=== PATIENT | male | born 1960 | race Caucasian/White ===

== ENCOUNTER 2018-10-04 20:03 | Inpatient (IN) | payer OTHER ==
[2018-10-04] MEDS ORDERED: NS 0.9% 1000 ML** 1,000 ML IV ONE (22:46)
[2018-10-04] MEDS ORDERED: Morphine 4 MG/ML VIAL (1 ml) 4 MG/ML VIAL IV ONE (22:52)
[2018-10-04] MEDS ORDERED: Ondansetron INJ* 2 MG/ML VIAL IV ONE (22:52)
[2018-10-04 23:06] LABS: Urine Appearance Clear; Urine Bilirubin Negative (Negative); Urine Blood Negative (Negative); Urine Color Yellow; Urine Glucose Negative (Negative); Urine Ketones Negative (Negative); Urine Nitrite Negative (Negative); Urine Protein Negative (Negative); Urine Specific Gravity 1.023 (1.010-1.030); Urine Urobilinogen Negative (Negative)
[2018-10-04 23:26] LABS: ABS Lymphocytes 0.5 10^3/ul (1.0-4.8); ABS Monocytes 0.3 10^3/ul (0-0.8); ABS Neutrophils 12.2 10^3/ul (1.5-7.7); Hematocrit 45 % (42-52); Lymphocyte % 3.7 %; Mean Corpuscular HGB Conc 34 g/dL (31-36); Mean Corpuscular Hemoglobin 29 pg (27-31); Mean Corpuscular Volume 87 fL (80-94); Mean Platelet Volume 7.9 fL (7.4-10.4); Platelet Count 155 10^3/uL (150-450); Red Blood Count 5.12 10^6 /uL (4.18-5.48); Red Cell Distribution Width 13 % (10-15)
[2018-10-04 23:44] LABS: ALT 30 U/L (7-52); AST 26 U/L (13-39); Albumin 4.6 g/dL (3.2-5.2); Albumin/Globulin Ratio 1.7 (1-3); Alkaline Phosphatase 65 U/L (34-104); Anion Gap 10 mmol/L (2-11); BUN/Creatinine Ratio 18.4 (8-20); Blood Urea Nitrogen 16 mg/dL (6-24); CO2 Carbon Dioxide 24 mmol/L (22-32); Calcium 10.2 mg/dL (8.6-10.3); Chloride 106 mmol/L (101-111); EGFR African American 108.7 (>60); EGFR Non-African American 89.8 (>60); Globulin 2.7 g/dL (2-4); Glucose 161 mg/dL (70-100); Potassium 4.6 mmol/L (3.5-5.0); Sodium 140 mmol/L (135-145); Total Protein 7.3 g/dL (6.4-8.9)
[2018-10-05] MEDS ORDERED: Morphine 4 MG/ML VIAL (1 ml) 4 MG/ML VIAL IV ONE (00:01)
[2018-10-05] MEDS ORDERED: Iohexol 300* (CONTRAST) 10 ML SDV IV ONE (00:03)
[2018-10-05] MEDS ORDERED: ED Piperacillin/Tazobac 3.375 3.375 GM/100 ML PREMIX.SET IVPB ONE (02:00)
[2018-10-05] MEDS ORDERED: HYDROmorphone INJ1* 1 MG/ML SYRINGE IV ONE ×2 (02:02→02:51)
--- NOTE | 2018-10-05 02:03 | ED ---
Abdominal Pain/Male - HPI Summary HPI Summary: Patient complains of sudden onset bilateral lower abdominal pain 5 hours prior to arrival with right side greater than left side, associated nausea. Also states no bowel movement 2.5 days. History of colonoscopy [address] Stevens in [place]. Denies fever, cough, sore throat, CP, SOB, V/D, change in urine. Medical history is none. Abdominal surgical history is none. - History of Current Complaint Chief Complaint: EDAbdPain Stated Complaint: ABD PAIN PER PT Time Seen by Provider: 10/04/18 22:42 Hx Obtained From: Patient Onset/Duration: Sudden Onset, Lasting Hours Timing: Constant Severity Initially: Severe Severity Currently: Severe Pain Intensity: 8 Pain Scale Used: 0-10 Numeric Location: Discrete At: RLQ, Discrete At: LLQ, Suprapubic Radiates: No Character: Sharp Aggravating Factor(s): Nothing Alleviating Factor(s): Nothing Associated Signs And Symptoms: Positive: Negative - Allergies/Home Medications Allergies/Adverse Reactions: Allergies Allergy/AdvReac Type Severity Reaction Status Date / Time No Known Allergies Allergy Verified 11/01/12 07:21 PMH/Surg Hx/FS Hx/Imm Hx Endocrine/Hematology History: Denies: Hx Diabetes, Hx Thyroid Disease Cardiovascular History: Denies: Hx Congestive Heart Failure, Hx Deep Vein Thrombosis, Hx Hypertension , Hx Myocardial Infarction, Hx Pacemaker/ICD, Other Cardiovascular Problems/ Disorders Respiratory History: Denies: Hx Asthma, Hx Chronic Obstructive Pulmonary Disease (COPD), Hx Lung Cancer, Hx Pneumonia, Hx Pulmonary Embolism, Other Respiratory Problems/ Disorders GI History: Denies: Hx Gall Bladder Disease, Hx Gastrointestinal Bleed, Hx Ulcer, Hx Urosepsis, Other GI Disorders History: Denies: Hx Kidney Stones, Hx Renal Disease, Other Problems/Disorders Musculoskeletal History: Denies: Other Musculoskeletal History Sensory History: Denies: Hx Contacts or Glasses, Hx Hearing Aid Opthamlomology History: Denies: Hx Contacts or Glasses Neurological History: Denies: Hx Dementia, Hx Migraine, Hx Seizures, Hx Transient Ischemic Attacks (TIA), Other Neuro Impairments/Disorders Psychiatric History: Denies: Hx Anxiety, Hx Depression, Hx Schizophrenia, Hx Bipolar Disorder - Surgical History Surgery Procedure, Year, and Place: WISDOM TEETH 30 YEARS AGO. L bicept surgery Hx Anesthesia Reactions: No Infectious Disease History: No Infectious Disease History: Denies: Hx Hepatitis, Hx Human Immunodeficiency Virus (HIV), History Other Infectious Disease, Traveled Outside the [place] in Last 30 Days - Family History Known Family History: Positive: None - Social History Alcohol Use: None Substance Use Type: Reports: None Smoking Status (MU): Former Smoker Review of Systems Constitutional: Negative Eyes: Negative ENT: Negative Cardiovascular: Negative Respiratory: Negative Positive: Abdominal Pain, Nausea Genitourinary: Negative Musculoskeletal: Negative Skin: Negative Neurological: Negative Psychological: Normal All Other Systems Reviewed And Are Negative: Yes Physical Exam - Summary Physical Exam Summary: Tenderness to palpation in bilateral lower abdomen. Abdominal exam otherwise unremarkable. Lung sounds clear to auscultation bilaterally. Triage Information Reviewed: Yes Vital Signs On Initial Exam: Initial Vitals Temp Pulse Resp BP Pulse Ox 98.6 F 90 22 143/98 98 10/04/18 20:41 10/04/18 20:41 10/04/18 20:41 10/04/18 20:41 10/04/18 20:41 Vital Signs Reviewed: Yes Appearance: Positive: Well-Appearing Skin: Positive: Warm Head/Face: Positive: Normal Head/Face Inspection Eyes: Positive: Normal ENT: Positive: Normal ENT inspection Neck: Positive: Supple Respiratory/Lung Sounds: Positive: Clear to Auscultation Cardiovascular: Positive: Normal Abdomen Description: Positive: Other: Diagnostics - Vital Signs Vital Signs Temp Pulse Resp BP Pulse Ox 10/05/18 00:52 18 10/05/18 00:08 37 146/105 10/05/18 00:00 24 10/04/18 23:42 28 10/04/18 23:37 31 145/96 10/04/18 23:08 119 38 139/97 94 10/04/18 23:02 18 10/04/18 23:00 130 38 97 10/04/18 22:39 137 97 10/04/18 22:38 132 155/104 98 10/04/18 20:41 98.6 F 90 22 143/98 98 - Laboratory Lab Results: Lab Results 10/04/18 10/04/18 10/04/18 Range/Units 22:45 23:14 23:14 WBC 13.0 H (3.5-10.8) 10^3/uL RBC 5.12 (4.18-5.48) 10^6 /uL Hgb 15.0 (14.0-18.0) g/dL Hct 45 (42-52) % MCV 87 (80-94) fL MCH 29 (27-31) pg MCHC 34 (31-36) g/dL RDW 13 (10-15) % Plt Count 155 (150-450) 10^3/uL MPV 7.9 (7.4-10.4) fL Neut % (Auto) 93.7 % Lymph % (Auto) 3.7 % Gray % (Auto) 2.3 % Eos % (Auto) 0.0 % Baso % (Auto) 0.3 % Absolute Neuts (auto) 12.2 H (1.5-7.7) 10^3/ul Absolute Lymphs (auto) 0.5 L (1.0-4.8) 10^3/ul Absolute Monos (auto) 0.3 (0-0.8) 10^3/ul Absolute Eos (auto) 0.0 (0-0.6) 10^3/ul Absolute Basos (auto) 0.0 (0-0.2) 10^3/ul Absolute Nucleated RBC 0.0 10^3/ul Nucleated RBC % 0.0 Sodium 140 (135-145) mmol/L Potassium 4.6 (3.5-5.0) mmol/L Chloride 106 (101-111) mmol/L Carbon Dioxide 24 (22-32) mmol/L Anion Gap 10 (2-11) mmol/L BUN 16 (6-24) mg/dL Creatinine 0.87 (0.67-1.17) mg/dL Est GFR ( Amer) 108.7 (>60) Est GFR (Non-Af Amer) 89.8 (>60) BUN/Creatinine Ratio 18.4 (8-20) Glucose 161 H (70-100) mg/dL Calcium 10.2 (8.6-10.3) mg/dL Total Bilirubin 0.80 (0.2-1.0) mg/dL AST 26 (13-39) U/L ALT 30 (7-52) U/L Alkaline Phosphatase 65 (34-104) U/L C-Reactive Protein 4.50 (<8.01) mg/L Total Protein 7.3 (6.4-8.9) g/dL Albumin 4.6 (3.2-5.2) g/dL Globulin 2.7 (2-4) g/dL Albumin/Globulin Ratio 1.7 (1-3) Lipase < 10 L (11.0-82.0) U/L Urine Color Yellow Urine Appearance Clear Urine pH 5.0 (5-9) Ur Specific [place] 1.023 (1.010-1.030) Urine Protein Negative (Negative) Urine Ketones Negative (Negative) Urine Blood Negative (Negative) Urine Nitrate Negative (Negative) Urine Bilirubin Negative (Negative) Urine Urobilinogen Negative (Negative) Ur Leukocyte Esterase Negative (Negative) Urine Glucose Negative (Negative) Result Diagrams: 10/06/18 05:46 10/06/18 05:46 Lab Statement: Any lab studies that have been ordered have been reviewed, and results considered in the medical decision making process. Abdominal Pain Male Course/Dx - Course Course Of Treatment: Patient complains of sudden onset bilateral lower abdominal pain 5 hours prior to arrival with right side greater than left side, associated nausea. Also states no bowel movement 2.5 days. History of colonoscopy [address] Stevens in [place]. Denies fever, cough, sore throat, CP, SOB, V/D, change in urine. Medical history is none. Abdominal surgical history is none. Vital signs within normal limits. WBC 13. Labs otherwise unremarkable. Ultrasound testicle negative. CT abdomen and pelvis with contrast positive for brynn pneumoperitoneum with appearance of focal perforation of the distal sigmoid colon. Extensive diverticulosis without evidence of acute diverticulitis. Admitted to surgery Dr. Torrez. Rickey given here in the ED. - Diagnoses Provider Diagnoses: Pneumoperitoneum, Perforated sigmoid colon Discharge - Sign-Out/Discharge Documenting (check all that apply): Patient Departure Patient Received Moderate/Deep Sedation with Procedure: No - Discharge Plan Condition: Fair Disposition: ADMITTED TO [facility] - Billing Disposition and Condition Condition: FAIR Disposition: Admitted to [facility]
[2018-10-05] MEDS ORDERED: Zosyn 3.375 GM IV - ED ONCE IVPB ONE ×2 (02:30)
[2018-10-05] MEDS ORDERED: Sevoflurane* BOTTLE ONE (03:22)
[2018-10-05] MEDS ORDERED: Midazolam* 1 MG/ML 2 ML VIAL (2 MG) ONE (03:22)
[2018-10-05] MEDS ORDERED: ceFOXitin 2 GM IVPREMIX* 2 GM/50 ML BAG ONE (03:22)
[2018-10-05] MEDS ORDERED: fentaNYL* 50 MCG/ML 2 ML VIAL (100 MCG VIAL) ONE ×2 (03:22→06:52)
[2018-10-05] MEDS ORDERED: Lactated Ringers 1000 ML Bag* 1,000 ML IV SCH (04:00)
[2018-10-05] MEDS ORDERED: Propofol* 10 MG/ML 20 ML BTL ONE (04:13)
[2018-10-05] MEDS ORDERED: Lidocaine 2% PF * 5 ML VIAL ONE (04:13)
[2018-10-05] MEDS ORDERED: Succinylcholine* 20 MG/ML 10 ML VIAL ONE (04:13)
[2018-10-05] MEDS ORDERED: Dexamethasone IV* 4 MG/ML 1 ML (4 MG) ONE (04:13)
[2018-10-05] MEDS ORDERED: Ondansetron INJ* 2 MG/ML VIAL ONE (04:13)
[2018-10-05] MEDS ORDERED: Etomidate* 2 MG/ML 10 ML VIAL ONE (04:14)
[2018-10-05] MEDS ORDERED: Cisatracurium* 2 MG/ML MDV 5 ML ONE (04:18)
--- NOTE | 2018-10-05 04:53 | HP ---
CC: Dr. Brumfield; Dr. Pineda * ADMISSION HISTORY AND PHYSICAL: DATE OF ADMISSION: 10/05/18 CHIEF COMPLAINT: Abdominal pain. HISTORY OF PRESENT ILLNESS: This pleasant 57-year-old gentleman presented to the emergency room last evening with abdominal pain. Pain was severe in the lower abdomen and had been going on since earlier in the day, came to the emergency room about 7 o'clock. He has had some nausea. Recent history revealed that he had a colonoscopy with polypectomy in [place] by Dr. Pineda on 10/02/18 with a polyp removal. Prior to that, no bleeding. He was seen for routine screening according to the patient. Since Sunday, denies issues of bleeding or abdominal pain until 10/04/18. Workup in the emergency room included laboratory studies, which showed an elevated white blood cell count of 13,000 received at 23:14. His electrolytes appeared normal. Hematocrit 45. He had a CT scan of the abdomen and pelvis at 22:45, which revealed brynn pneumoperitoneum with appearance of focal perforation in the distal sigmoid colon, which was interpreted and signed at 1:31. I was called at 2 a.m. to evaluate the patient. PAST MEDICAL HISTORY: Denies history of cardiac, liver, kidney, or lung disease. No history of UT. PAST SURGICAL HISTORY: No prior abdominal surgery. He did have left biceps surgery. Denies history of poor reaction with anesthesia. SOCIAL HISTORY: He is here with his . He has 3 children. He is a nonsmoker. No alcohol use. He works as a jeweler. FAMILY HISTORY: No history of colorectal or breast cancer noted. REVIEW OF SYSTEMS: General: Denies weight loss, change of appetite. HEENT: No changes in vision, hearing, swallowing. No sore throat. Cardiac: No chest pain. Pulmonary: Cough. GI: Some constipation. No blood per rectum. : No hematuria. Skin: Denies rash. Neuro: No headache or dizziness. Musculoskeletal: No extremity weakness. Psych: No anxiety or depression. PHYSICAL EXAMINATION GENERAL: Pleasant gentleman with abdominal pain. He is tachycardic. VITAL SIGNS: Blood pressure stable. HEENT: Sclerae are anicteric. Oral mucosa is pink and moist. NECK: Supple. No JVD. LUNGS: Clearly anteriorly. HEART: Tachy. ABDOMEN: Soft in the upper abdomen. Firm, tender in the lower abdomen with guarding, rebound tenderness consistent with peritonitis. EXTREMITIES: No clubbing, cyanosis, or edema. NEURO: Grossly intact. No focal motor or sensory deficits. SKIN: No rash, petechiae, or jaundice. IMPRESSION: Perforated sigmoid colon with recent colonoscopy and polypectomy. PLAN: Plan will be for exploratory laparotomy, likely sigmoid colectomy with end colostomy/Devin's procedure for perforation. We discussed the surgery and the risks including, but not limited to bleeding, infection, injury to intraabdominal contents including the bowel, the ureter, other intraabdominal contents. UT, pneumonia, PE, arrhythmia, even were explained to the patient. He gave consent for procedure and all questions were answered. [id number]/[facility] #: [id number] ROSAURA
[2018-10-05] MEDS ORDERED: Ketorolac INJ* 30 MG/ML 1 ML VIAL ONE (04:59)
[2018-10-05] MEDS: Ketorolac INJ* 30 MG/ML 1 ML VIAL IV SCH ×3 (05:00→18:01)
[2018-10-05] MEDS ORDERED: Bacitracin OINTMENT* 0.5% 0.5 oz TUBE ONE (05:01)
[2018-10-05] MEDS ORDERED: fentaNYL* 50 MCG/ML 2 ML VIAL (100 MCG VIAL) IV PRN (06:49)
[2018-10-05] MEDS ORDERED: Naloxone* 0.4 MG/ML 1 ML VIAL IV PRN (06:49)
--- NOTE | 2018-10-05 08:16 | OP ---
DATE OF OPERATION: 10/05/18 - ROOM #342 DATE OF : 56 ATTENDING SURGEON: Luís Torrez MD PRE-OP DIAGNOSIS: Perforated sigmoid colon. POST-OP DIAGNOSIS: Perforated sigmoid colon. OPERATIVE PROCEDURES: Open sigmoid colectomy, then coloectomy/Devin's procedure. INDICATIONS FOR PROCEDURE: Perforation after recent colonoscopy in [place]. Risks included, but not limited to bleeding and perforation explained to the patient. The patient seemed to understand and agreed to the procedure and all questions were answered. DESCRIPTION OF PROCEDURE: The patient was taken to the operating room and placed supine. Preoperative antibiotics were given. After the successful induction of general endotracheal anesthesia, the abdomen was prepped and draped in a sterile fashion. A midline incision was made both the umbilicus and carried down through the subcutaneous tissue. Bovie cautery was used to open the fascia and the peritoneal cavity was entered. A large amount of purulent fluid was noted. Much of this was aspirated. The abdomen was explored. The sigmoid colon showed an obvious large perforation on the antimesenteric border. The segment of perforation appeared to be localized to this area. Some small bowel was adherent to the area, but appeared viable and normal. Some omentum was adhered down there as well. The sigmoid was gently mobilized medially along the lateral peritoneal reflection. The colon was divided at the rectosigmoid using a 60-mm stapler. Then approximately proximal to the perforation using another load of the 65-mm stapler. The mesentry was taken using the Endo sealing device. Specimen was removed. The abdomen was copiously irrigated with warm saline, at least 6 L and aspirated dry. The bowel was run. A few omental adhesions were divided. No other bowel or intraabdominal abnormalities were noted. Decision was to make an ostomy in the left lower quadrant and choice was chosen. Skin was removed. Subcutaneous fat was divided with Bovie cautery. Anterior fascia was opened in a cruciate fashion. The rectus muscles were gently along the fibers. Posterior fascia was opened. The bowel was brought through for colostomy. The omentum was placed over the small bowel. The fascia was closed with a running #1 PDS suture. The skin was closed with elle, antibiotic ointment was applied. The wound was irrigated prior to closure. The colostomy was matured using 4-0 PDS suture. He tolerated the procedure well. [id number]/[facility] #: [id number] [facility] DOWN[facility] MEDICAL CENTERKerry
[2018-10-05] MEDS: Lactated Ringers 1000 ML Bag* 1,000 ML IV SCH ×2 (08:35→15:49)
[2018-10-05] MEDS: Piperacillin/Tazobactam VIAL*) 3.375 GM in NS 0.9% 100 ML* 100 ML IVPB SCH ×3 (11:21→20:21)
[2018-10-05] MEDS: Heparin VIAL(*) 5000 UNITS/ML VIAL (FIVE THOUSAND) SUBCUT SCH ×3 (12:24→21:43)
[2018-10-05] MEDS ORDERED: Famotidine IV* 10 MG/ML 2 ML (20 mg) ONE (15:42)
[2018-10-05] MEDS: Ondansetron INJ* 2 MG/ML VIAL IV PRN (15:46)
[2018-10-05] MEDS: Famotidine IV* 10 MG/ML 2 ML (20 mg) IV PRN (15:47)
[2018-10-05] MEDS: NS 0.9% 1000 ML** 1,000 ML IV SCH (21:00)
[2018-10-06] MEDS: Ketorolac INJ* 30 MG/ML 1 ML VIAL IV SCH ×5 (00:14→23:45)
[2018-10-06] MEDS: Piperacillin/Tazobactam VIAL*) 3.375 GM in NS 0.9% 100 ML* 100 ML IVPB SCH ×3 (04:07→19:42)
[2018-10-06] MEDS: Heparin VIAL(*) 5000 UNITS/ML VIAL (FIVE THOUSAND) SUBCUT SCH ×3 (06:01→21:39)
[2018-10-06] MEDS: NS 0.9% 1000 ML** 1,000 ML IV SCH ×3 (06:05→21:44)
[2018-10-06 06:13] LABS: ABS Monocytes 0.4 10^3/ul (0-0.8); ABS Neutrophils 15.9 10^3/ul (1.5-7.7); Hematocrit 34 % (42-52); Hemoglobin 11.8 g/dL (14.0-18.0); Lymphocyte % 5.7 %; Mean Corpuscular HGB Conc 35 g/dL (31-36); Mean Corpuscular Hemoglobin 30 pg (27-31); Mean Corpuscular Volume 87 fL (80-94); Mean Platelet Volume 8.2 fL (7.4-10.4); Nucleated Red Blood Cells % 0.1; Platelet Count 128 10^3/uL (150-450); Red Blood Count 3.88 10^6 /uL (4.18-5.48); Red Cell Distribution Width 13 % (10-15); White Blood Count 17.3 10^3/uL (3.5-10.8)
[2018-10-06 06:27] LABS: BUN/Creatinine Ratio 28.2 (8-20); Calcium 8.4 mg/dL (8.6-10.3); EGFR African American 123.3 (>60); EGFR Non-African American 101.9 (>60); Potassium 3.6 mmol/L (3.5-5.0)
[2018-10-06] MEDS ORDERED: Lactated Ringers 1000 ML Bag* 1,000 ML IV SCH (08:00)
--- NOTE | 2018-10-06 09:12 | PN ---
Progress Note - Progress Note Date of Service: 10/06/18 SOAP: Subjective: Pain controlled with Toradol only. Up walking. +flatus. No N/V. Objective: Vital Signs Temp 98.3 F 10/06/18 07:55 Pulse 99 10/06/18 07:55 Resp 17 10/06/18 07:55 BP 112/67 10/06/18 07:55 Pulse Ox 93 10/06/18 07:55 Gen: NAD Abd: dressings c/d/i; ostomy pink with edema +gas; mildly distended and tender. Intake & Output 10/05/18 10/06/18 10/06/18 18:59 06:59 18:59 Intake Total 1640 667 397 Output Total 850 800 Balance 790 -133 397 Weight 180 lb Intake: IV Fluids 1535 554 290 LR 1430 554 NS (0.9%) 105 290 IVPB 105 113 107 ABX - ZOSYN 105 113 107 Oral 0 0 Output: NG Tube Drainage Amount 200 125 Urine 375 625 Colostomy 50 Emesis 275 Laboratory Results - last 24 hr 10/06/18 10/06/18 05:46 05:46 WBC 17.3 H RBC 3.88 L Hgb 11.8 L Hct 34 L MCV 87 MCH 30 MCHC 35 RDW 13 Plt Count 128 L MPV 8.2 Neut % (Auto) 91.7 Lymph % (Auto) 5.7 Reeves % (Auto) 2.6 Eos % (Auto) 0.0 Baso % (Auto) 0.0 Absolute Neuts (auto) 15.9 H Absolute Lymphs (auto) 1.0 Absolute Monos (auto) 0.4 Absolute Eos (auto) 0.0 Absolute Basos (auto) 0.0 Absolute Nucleated RBC 0.0 Nucleated RBC % 0.1 Sodium 141 Potassium 3.6 Chloride 110 Carbon Dioxide 26 Anion Gap 5 BUN 22 Creatinine 0.78 Est GFR ( Amer) 123.3 Est GFR (Non-Af Amer) 101.9 BUN/Creatinine Ratio 28.2 H Glucose 120 H Calcium 8.4 L Assessment: POD#1 s/p Devin. Tachycardic with leukocytosis but does not appear septic -- due to peritonitis ( treated) Plan: D/c NGT Cont Zosyn Cont IVF Gradually adv diet.
[2018-10-07] MEDS: Piperacillin/Tazobactam VIAL*) 3.375 GM in NS 0.9% 100 ML* 100 ML IVPB SCH ×3 (04:28→20:05)
[2018-10-07] MEDS: NS 0.9% 1000 ML** 1,000 ML IV SCH ×3 (06:07→15:04)
[2018-10-07] MEDS: Heparin VIAL(*) 5000 UNITS/ML VIAL (FIVE THOUSAND) SUBCUT SCH ×3 (06:08→21:35)
[2018-10-07] MEDS: Ketorolac INJ* 30 MG/ML 1 ML VIAL IV SCH (06:09)
[2018-10-07 06:37] LABS: ABS Monocytes 0.3 10^3/ul (0-0.8); ABS Neutrophils 9.4 10^3/ul (1.5-7.7); Eosinophil % 0.1 %; Hematocrit 31 % (42-52); Hemoglobin 10.8 g/dL (14.0-18.0); Lymphocyte % 9.6 %; Mean Corpuscular HGB Conc 35 g/dL (31-36); Mean Corpuscular Hemoglobin 31 pg (27-31); Mean Corpuscular Volume 88 fL (80-94); Mean Platelet Volume 8.5 fL (7.4-10.4); Platelet Count 107 10^3/uL (150-450); Red Cell Distribution Width 13 % (10-15); White Blood Count 10.7 10^3/uL (3.5-10.8)
--- NOTE | 2018-10-07 10:39 | PN ---
Progress Note - Progress Note Date of Service: 10/07/18 SOAP: Subjective:minimal pain,ambulating,a little hungry [] Objective: Vital Signs Temp 98.3 F 10/07/18 07:58 Pulse 88 10/07/18 07:58 Resp 24 10/07/18 07:58 BP 143/86 10/07/18 07:58 Pulse Ox 94 10/07/18 07:58 Intake & Output 10/06/18 10/07/18 10/07/18 18:59 06:59 18:59 Intake Total 2447 1526 Output Total 675 1120 300 Balance 1772 406 -300 Intake: IV Fluids 915 990 ABX - ZOSYN 990 NS (0.9%) 915 IVPB 1212 216 ABX - PIPERACILLIN 216 ABX - ZOSYN 212 LR 1000 Oral 320 320 Output: Urine 650 600 300 Colostomy 25 520 lungs:clear bilat;heart:RRR;abd:hypoactive bs;soft;midline incision c/d/intact with elle;colostomy with gas and liquid brown stool,stoma pink;ext:nontender calves,no edema [] Assessment:POD#2 s/p Devin's;doing well [] Plan:advance to full liqs ostomy teaching inspiron and ambulation []
[2018-10-07] MEDS ORDERED: D5LR 1000 ML BAG* 1,000 ML IV SCH (11:00)
--- NOTE | 2018-10-07 12:07 | PN ---
Progress Note - Progress Note Date of Service: 10/07/18 - Anesthesia Note Note: Called to evaluate patient with symptoms of foreign body/ flapping sensation in posterior pharynx. It is very noticeable when doing spirometry. patient has had multiple NGT placement attempts as well as airway manipulation during anesthetic. On exam the Uvula and soft palate area edematous and multiple areas of eccyhmosis. There is not obvious other trauma noticed. Patient was able to reproduce the foreign body sensation which was causing his symptoms and it appears to be his edematous uvula. I reassured his that this should get better over time but is symptoms are not improving over the next few days to possibly have ENT evaulation. His questions were answered and case discussed with patients nurse.
--- NOTE | 2018-10-07 14:15 | PN ---
Progress Note - Progress Note Date of Service: 10/07/18 SOAP: Subjective: He states that he does not have any pain, but his abdomen feels very full. He does not have much of an appetite, but denies nausea and vomiting. He was up and walking the halls this morning, but did feel fatigued after. He also stated that he has been taught about colostomy care and feels comfortable with what that will entail. Objective: Vital Signs - 12 hr Temp Pulse Resp BP Pulse Ox 10/07/18 11:55 98.7 F 78 18 141/87 96 10/07/18 07:58 98.3 F 88 24 143/86 94 10/07/18 07:30 18 10/07/18 04:29 98.4 F 88 16 142/87 96 Physical exam: Mr. Lozano is alert, oriented, and in no acute distress. RRR, lung sounds clear bilaterally. Abdomen is soft with diffusely hypoactive bowel sounds. Midline incision is clean, dry, and intact with elle, no erythema or swelling. Colostomy site pink and non-tender, gas and loose liquid brown stool in bag. No leg swelling or tenderness appreciated. Assessment: status 2 days postop Devin - improving Plan: Begin solid foods as tolerated. Continue frequent ambulation.
[2018-10-07] MEDS: HYDROmorphone INJ1* 1 MG/ML SYRINGE IV SLOW PU PRN (19:13)
[2018-10-08] MEDS: Piperacillin/Tazobactam VIAL*) 3.375 GM in NS 0.9% 100 ML* 100 ML IVPB SCH ×3 (04:01→20:31)
[2018-10-08] MEDS: NS 0.9% 1000 ML** 1,000 ML IV SCH (04:26)
[2018-10-08] MEDS: HYDROmorphone INJ1* 1 MG/ML SYRINGE IV SLOW PU PRN ×2 (04:27→12:39)
[2018-10-08] MEDS: Famotidine IV* 10 MG/ML 2 ML (20 mg) IV PRN (04:29)
[2018-10-08] MEDS: Heparin VIAL(*) 5000 UNITS/ML VIAL (FIVE THOUSAND) SUBCUT SCH ×3 (05:53→21:50)
--- NOTE | 2018-10-08 08:01 | PN ---
Progress Note - Progress Note Date of Service: 10/08/18 SOAP: Subjective: Mr. Lozano stated that last evening he started to have some diffuse abdominal pain. When it was most intense he rated it as a 5/10 and noted that it was exacerbated with movement. He also had some burning pain in his upper abdomen and epigastric area which he associated with indigestion. He tried to get through the night, but at 4:00 he decided to request pain medication. He was given Dilaudid with brought the pain down to a 1/10. He has been tolerating sips of clear liquids. He stated that is hesitant to eat because he feels quite full and reports burping a few times in the last day. He has been ambulating to the bathroom and did laps around the floor before the pain started yesterday. He is comfortable with caring for the colostomy bag. His IV site became swollen last evening and he reports it has not improved much despite being under ice. Objective: Vital Signs 10/07/18 10/07/18 10/07/18 07:58 11:55 15:00 Temperature 98.3 F 98.7 F 98.9 F Pulse Rate 88 78 87 Respiratory 24 18 18 Rate Blood Pressure 143/86 141/87 140/87 (mmHg) O2 Sat by Pulse 94 96 97 Oximetry 10/07/18 10/07/18 10/07/18 19:13 19:19 19:23 Temperature Pulse Rate Respiratory 17 17 17 Rate Blood Pressure (mmHg) O2 Sat by Pulse Oximetry 10/07/18 10/07/18 10/08/18 20:17 20:43 00:02 Temperature 98.3 F 98.3 F Pulse Rate 83 78 Respiratory 18 17 16 Rate Blood Pressure 149/85 152/87 (mmHg) O2 Sat by Pulse 96 96 Oximetry 10/08/18 10/08/18 10/08/18 03:58 04:27 05:49 Temperature 98.7 F Pulse Rate 85 Respiratory 17 16 16 Rate Blood Pressure 164/97 (mmHg) O2 Sat by Pulse 94 Oximetry Exam: He is alert, oriented, and not in distress. Regular rate and rhythm. Lungs clear to auscultation bilaterally. Abdomen is round with tenderness to palpation , no guarding. Hypoactive bowel sounds present in all four quadrants. Midline incision is clean. dry, and intact with elle, no erythema. Ostomy is pink, gas and liquid stool in bag. Left had is edematous. 2+ radial pulse present. Intake & Output 10/07/18 10/08/18 10/08/18 22:59 06:59 14:59 Intake Total 1599 1561 Output Total 325 1600 Balance 1274 -39 Assessment: Status post op day three Devin - stable Plan: continue clear liquids and begin solids if interested. Continue pain management. <Nahid Mitchell - Last Filed: 10/08/18 07:33> - Progress Note SOAP: Subjective: PA student note reviewed. Agree w/ assessment. Patient also seen by Dr. Torrez. Cont colostomy training. Likely d/c home tomorrow. Will order po analgesics. [] Objective: [] Assessment: [] Plan: [] <Mir Palacios - Last Filed: 10/08/18 14:45>
[2018-10-08] MEDS ORDERED: Ibuprofen TAB* 600 MG PO PRN (14:46)
[2018-10-08] MEDS ORDERED: Acetaminophen TAB* 325 MG PO PRN (14:46)
[2018-10-08] MEDS ORDERED: oxyCODONE/Acetamin 5/325 MG* TAB PO PRN (14:46)
[2018-10-09] MEDS: Piperacillin/Tazobactam VIAL*) 3.375 GM in NS 0.9% 100 ML* 100 ML IVPB SCH ×2 (04:01→12:16)
[2018-10-09] MEDS: Ondansetron INJ* 2 MG/ML VIAL IV PRN (04:50)
[2018-10-09] MEDS: Heparin VIAL(*) 5000 UNITS/ML VIAL (FIVE THOUSAND) SUBCUT SCH ×2 (06:26→15:26)
[2018-10-09 11:48] VITALS: BP 151/84
--- NOTE | 2018-10-09 12:04 | PN ---
Progress Note - Progress Note Date of Service: 10/09/18 Note: S: POD #4. Seen and examined w/ PA student, Jess Davila. [place] "full" all night after eating most of the meat on his supper plate last pm. Didn't eat much this a.m., but is drinking ok. Colostomy active for flatus and liquid stool this a.m. Ambulating. O: Vital Signs - 8 hr 10/09/18 10/09/18 10/09/18 04:45 06:30 07:37 Temperature 98.1 F Pulse Rate 74 Respiratory 18 Rate Blood Pressure 142/92 150/86 136/81 (mmHg) O2 Sat by Pulse 97 Oximetry 10/09/18 11:47 Temperature 98.7 F Pulse Rate 59 Respiratory 18 Rate Blood Pressure 151/84 (mmHg) O2 Sat by Pulse 96 Oximetry Intake and Output Last 24 Hours 10/07/18 10/08/18 10/09/18 10/10/18 06:59 06:59 06:59 06:59 Intake Total 3973 3160 2556 Output Total 1795 2505 1575 Balance 2178 655 981 Intake: IV Fluids 1905 1960 1256 ABX - PIPERACILLIN 318 ABX - ZOSYN 990 190 NS (0.9%) 915 1770 938 IVPB 1428 100 ABX - PIPERACILLIN 216 100 ABX - ZOSYN 212 LR 1000 Oral 640 1100 1300 Output: Urine 1250 2255 1575 Liquid Stool 150 Colostomy 545 100 Other: # Bowel Movements 0 Gen: comfortable; NAD Heart: reg Lungs: clear Abd: midline incision, healing well; ostomy: good color; +BS; soft; mild incisional tenderness only Ext: no edema or tenderness A: s/p Devin procedure for perf'd sigmoid colon, doing well P: discussed w/ Dr. Torrez; home today; no further abx needed. Colostomy care; office f/u next wk
--- NOTE | 2018-10-09 18:50 | DS ---
CC: Dr. Brumfield* DISCHARGE SUMMARY: DATE OF ADMISSION: 10/05/18 DATE OF DISCHARGE: 10/09/18 ATTENDING PROVIDER: Dr. Torrez * (DICTATED BY KT JUÁREZ) HOSPITAL COURSE: Please refer to admission history and physical and operative note for details. Briefly, the patient had undergone recent colonoscopy in [place] and presented with evidence of perforation. He was taken to the operating room on 10/05/[address] Torrez, at which time he underwent an open sigmoid colectomy with creation of an end colostomy. He has had an uneventful postoperative course with gradual improvement in pain and tolerance of oral diet. As of the morning of discharge, he is tolerating diet well, having normal ostomy function, and feels confident in terms of his ability to care for the colostomy. See separate progress note of the same date for details of exam. He was treated with IV Zosyn during the perioperative period. He takes no usual home medications. It was decided that he would not require any additional antibiotics upon discharge. He is scheduled for a followup appointment in our office with Dr. Torrez on 10/16/18. He is discharged to home in good condition. KT JUÁREZ [id number]/[facility] #: [id number] MTDD
== END 2018-10-09 15:30 | disposition home health service (06) | DRG 221 ==
LOC: ED 20:03 → OR 10-05 04:24 → SSU 10-05 08:29
PROVIDERS: ADMIT Surgery; ATTEND Surgery
PROC: 0D1N0Z4 Bypass Sigmoid Colon to Cutaneous, Open Approach (ICD-10-PCS; 2018-10-05)
PROC: 0DBN0ZZ Excision of Sigmoid Colon, Open Approach (ICD-10-PCS; principal; 2018-10-05 04:00)
DX: K57.20 Diverticulitis of large intestine with perforation and abscess without bleeding (principal); K65.9 Peritonitis, unspecified; K66.8 Other specified disorders of peritoneum; K59.00 Constipation, unspecified; R00.0 Tachycardia, unspecified; R60.0 Localized edema; Z87.891 Personal history of nicotine dependence
CPT/HCPCS: 36415; 74177; 76870; 80048; 80053; 81003; 83690; 85025; 86140; 88307; 99284; A9270-GY; J0330; J0694; J1100; J1170; J1644; J1885; J2250; J2270; J2405; J2543; J2704; J3010; Q9967

== ENCOUNTER 2019-02-03 06:03 | Inpatient (IN) | payer OTHER ==
[~2019-02-03 06:03] MED LIST: Buffered Lidocaine 1% SYRIN* 1 ML/SYRINGE INTRADERM ONE; Dexamethasone IV* 4 MG/ML 1 ML (4 MG) IV SLOW PU ONE; Famotidine IV* 10 MG/ML 2 ML (20 mg) IV ONE; Lactated Ringers 1000 ML Bag* 1,000 ML IV SCH; Scopolamine 1.5 mg* PATCH TRANSDERM ONE
--- OUTSIDE RECORDS SUMMARY | 2019-02-03 06:07 | XMS REPORT | Continuity of Care Document ---
:1960 External Reference #:[id number] Author Name Luís Torrez MD (transmitted by agent of provider Veronica Miranda) Address [address] [place] [id number] Care Team Providers Name Role Phone Kia Brumfield MD - Internal Medicine Care Team Information Construction Rep [phone] Problems Description No Information Available Social History Type Date Description Comments Sex Unknown ETOH Use Denies alcohol use Tobacco Use Start: Unknown End: Patient is a former smoker Unknown Recreational Drug Use Never Used Drugs Tobacco Use Start: Unknown End: Patient is a former smoker Quit 1998 Unknown Smoking Status Reviewed: 01/01/19 Patient is a former smoker Quit 1998 Exercise Type/Frequency Exercises regularly Allergies, Adverse Reactions, Alerts Description No Known Drug Allergies Medications Active Medications SIG Qnty Indications Ordering Date Provider Suprep Bowel Prep take according to 354ml Luís Diana 01/01/2019 Kit the instructions you MD Lore received, the 17.5-3.13-1.6GM/177M afternoon before and L Solution morning of your procedure. Immunizations Description No Information Available Vital Signs Date Vital Result Comment 01/01/2019 9:07am Heart Rate 64 /min BP Systolic 122 mmHg BP Diastolic 82 mmHg Respiratory Rate 16 /min Body Temperature 97.4 F 11/21/2018 9:49am Heart Rate 72 /min BP Systolic 126 mmHg BP Diastolic 82 mmHg Respiratory Rate 16 /min Body Temperature 97.6 F Results Test Date Facility Test Result H/L Range Note Urinalysis Profile 10/04/2018 [facility] Urine Color Yellow [address] [place] [address] [phone] Urine Appearance Clear Urine Specific [place] 1.023 Normal 1.010-1.030 Urine pH 5.0 Normal 5-9 Urine Urobilinogen Negative Negative Urine Ketones Negative Negative Urine Protein Negative Negative Urine Leukocytes Negative Negative Urine Blood Negative Negative Urine Nitrite Negative Negative Urine Bilirubin Negative Negative Urine Glucose Negative Negative Comp Metabolic 10/04/2018 [facility] Sodium 140 mmol/L Normal 135-145 Panel [address] [place] [address] [phone] Potassium 4.6 mmol/L Normal 3.5-5.0 Chloride 106 mmol/L Normal 101-111 Co2 Carbon Dioxide 24 mmol/L Normal 22-32 Anion Gap 10 mmol/L Normal 2-11 Glucose 161 mg/dL High 70-100 Blood Urea Nitrogen 16 mg/dL Normal 6-24 Creatinine 0.87 mg/dL Normal 0.67-1.17 BUN/Creatinine Ratio 18.4 Normal 8-20 Calcium 10.2 mg/dL Normal 8.6-10.3 Total Protein 7.3 g/dL Normal 6.4-8.9 Albumin 4.6 g/dL Normal 3.2-5.2 Globulin 2.7 g/dL Normal 2-4 Albumin/Globulin Ratio 1.7 Normal 1-3 Total Bilirubin 0.80 mg/dL Normal 0.2-1.0 Alkaline Phosphatase 65 U/L Normal 34-104 Alt 30 U/L Normal 7-52 Ast 26 U/L Normal 13-39 Egfr Non- 89.8 >60 Egfr 108.7 >60 1 Laboratory test 10/04/2018 [facility] Lipase < 10 U/L Low 11.0 -82.0 finding [address] [place] [address] [phone] C Reactive Protein 4.50 mg/L Normal <8.01 Comp Metabolic 08/28/2018 [facility] Sodium 141 mmol/L Normal 135-145 Panel [address] [place] [address] [phone] Potassium 4.5 mmol/L Normal 3.5-5.0 Chloride 104 mmol/L Normal 101-111 Co2 Carbon Dioxide 30 mmol/L Normal 22-32 Anion Gap 7 mmol/L Normal 2-11 Glucose 93 mg/dL Normal 70-100 Blood Urea Nitrogen 17 mg/dL Normal 6-24 Creatinine 0.79 mg/dL Normal 0.67-1.17 BUN/Creatinine Ratio 21.5 High 8-20 Calcium 9.8 mg/dL Normal 8.6-10.3 Total Protein 7.4 g/dL Normal 6.4-8.9 Albumin 4.6 g/dL Normal 3.2-5.2 Globulin 2.8 g/dL Normal 2-4 Albumin/Globulin Ratio 1.6 Normal 1-3 Total Bilirubin 0.50 mg/dL Normal 0.2-1.0 Alkaline Phosphatase 63 U/L Normal 34-104 Alt 43 U/L Normal 7-52 Ast 23 U/L Normal 13-39 Egfr Non- 100.4 >60 Egfr 121.5 >60 2 Laboratory 08/28/2018 [facility] TSH (Thyroid 1.48 Normal 0.34 -5.60 test finding [address] Stim Horm) mcIU/[place] [address] [phone] Urinalysis 08/28/2018 [facility] Urine Color Yellow Profile [address] [place] [address] [phone] Urine Appearance Turbid Urine Specific [place] 1.020 Normal 1.010-1.030 Urine pH 5.0 Normal 5-9 Urine Urobilinogen Negative Negative Urine Ketones Negative Negative Urine Protein Negative Negative Urine Leukocytes Negative Negative Urine Blood Negative Negative Urine Nitrite Negative Negative Urine Bilirubin Negative Negative Urine Glucose Negative Negative Urine Culture And 08/28/2018 [facility] Urine SEE RESULT [address] [place] [address] [phone] PSA Free And Total 08/28/2018 [facility] PSA Total 22.2 ng/mL Abnormal <=3. [address] [place] [address] [phone] PSA Free 0.9 ng/mL PSA Free/Total See Comment ratio 4 Lipid Profile 08/28/2018 [facility] Triglycerides 191 mg/dL 5 (Trig/Chol/HDL) [address] [place] [address] [phone] Cholesterol 211 mg/dL 6 HDL Cholesterol 28.3 mg/dL 7 LDL Cholesterol 145 mg/dL 8 Laboratory test 08/28/2018 [facility] Glucose 94 mg/dL Normal 70-100 [address] [place] [address] [phone] CBC Auto Diff 08/28/2018 [facility] White Blood 8.5 Normal 3.5 -10.[address] Count 10^3/[place] [address] [phone] Red Blood Count 4.81 10^6/uL Normal 4.18-5.48 Hemoglobin 14.1 g/dL Normal 14.0-18.0 Hematocrit 42 % Normal 42-52 Mean Corpuscular Volume 87 fL Normal 80-94 Mean Corpuscular Hemoglobin 29 pg Normal 27-31 Mean Corpuscular HGB Conc 34 g/dL Normal 31-36 Red Cell Distribution Width 12 % Normal 10.5-15 Platelet Count 344 10^3/uL Normal 150-450 Mean Platelet Volume 7.5 fL Normal 7.4-10.4 Abs Neutrophils 6.3 10^3/uL Normal 1.5-7.7 Abs Lymphocytes 1.7 10^3/uL Normal 1.0-4.8 Abs Monocytes 0.4 10^3/uL Normal 0-0.8 Abs Eosinophils 0.1 10^3/uL Normal 0-0.6 Abs Basophils 0.0 10^3/uL Normal 0-0.2 Abs Nucleated RBC 0.0 10^3/uL Granulocyte % 74.2 % Lymphocyte % 19.8 % Monocyte % 5.0 % Eosinophil % 0.6 % Basophil % 0.4 % Nucleated Red Blood Cells % 0.1 1 Because ethnic data is not always readily available, this report includes an eGFR for both -Americans and non- Americans. The National Kidney Disease Education Program (NKDEP) does not endorse the use of the MDRD equation for patients that are not between the ages of 18 and 70, are , have extremes of body size, muscle mass, or nutritional status, or are non- or non-. According to the National Kidney Foundation, irrespective of diagnosis, the stage of the disease is based on the level of kidney function: Stage Description GFR(mL/min/1.73 m(2)) 1 Kidney damage with normal or decreased GFR 90 2 Kidney damage with mild decrease in GFR 60-89 3 Moderate decrease in GFR 30-59 4 Severe decrease in GFR 15-29 5 Kidney failure <15 (or dialysis) 2 Because ethnic data is not always readily available, this report includes an eGFR for both -Americans and non- Americans. The National Kidney Disease Education Program (NKDEP) does not endorse the use of the MDRD equation for patients that are not between the ages of 18 and 70, are , have extremes of body size, muscle mass, or nutritional status, or are non- or non-. According to the National Kidney Foundation, irrespective of diagnosis, the stage of the disease is based on the level of kidney function: Stage Description GFR(mL/min/1.73 m(2)) 1 Kidney damage with normal or decreased GFR 90 2 Kidney damage with mild decrease in GFR 60-89 3 Moderate decrease in GFR 30-59 4 Severe decrease in GFR 15-29 5 Kidney failure <15 (or dialysis) 3 SEE RESULT BELOW Name: KIKO LOZANO : [address]: Kia Brumfield MD Acct: [id number] Unit: [id number] AGE: 57 Location: [facility] Re08/28/18 SEX: M Status: REG REF SPEC: [id number] CAYDEN: 08/28/[address]: Kia Brumfield MD REQ: [id number] RECD: 08/28/18 STATUS: COMP _ SOURCE: URINE SPDESC: ORDERED: Urine Culture Procedure Result Reported Site Urine Culture Final 08/30/18- 0835 ML Organism 1 ENTEROCOCCUS FAECALIS [place] Count 10-25,000 (Moderate) CFU/ML 1. ENTEROCOCCUS FAECALIS [facility] RX --------- ------ Ampicillin <=2 S Penicillin 2 S Ciprofloxacin <=0.5 S Gentamicin High Level R Levofloxacin 1 S Linezolid 2 S Nitrofurantoin <=16 S * Quinupristin/Dalfopristin 8 R * Streptomycin High Level S Tetracycline >=16 R Tigecycline <=0.12 S Vancomycin 1 S Imipenem-Deduced S * Ampicillin/Sulbactam-Deduced S * These antibiotics are not available in the [facility] Formulary Contact the Microbiology Department for any additional antibiotic reporting. * ML - Main Lab . END OF REPORT DEPARTMENT OF PATHOLOGY, [address] [place] [address] Oliver Heard M.D. Director [facility] # [id number] 4 Ratio not calculated because clinical usefulness is not defined except in range of total PSA 4.0-10.0 ng/mL. ADDITIONAL INFORMATION The testing method is an electrochemiluminescence assay manufactured by [employer] and performed on the Modular or Heber system. Values obtained with different assay methods or kits may be different and cannot be used interchangeably. Test results cannot be interpreted as absolute evidence for the presence or absence of malignant disease. Test Performed by: [facility] [address] [place] [address] 5 Desirable: <150 Borderline High: 150-199 High: 200-499 Very High: >500 6 Desirable: <200 Borderline High: 200-239 High: >239 7 Low: <40 Desirable: 40-60 High: >60 8 Desirable: <100 Near Optimal: 100-129 Borderline High: 130-159 High: 160-189 Very High: >189 9 FASTING 8 HOUR Procedures Date Code Description Status 10/05/2018 92704 Colectomy Partial W/End Colostomy & Close Distal Segment Completed Medical Devices Description No Information Available Encounters Type Date Location Provider Dx Diagnosis Office Visit 10/[facility] Lu[facility] Diana K91.72 Acc pnctr & lac 7:00a Of [facility] Torrez MD of a [place] [facility] during oth procedure Office Visit 08/28/2018 [facility] Kia Brumfield MD Z00.00 Encntr for 9:00a Medicine - [facility] general adult medical exam w/o abnormal findings Z12.11 Encounter for screening for malignant neoplasm of colon K59.00 Constipation, unspecified R35.0 Frequency of micturition Assessments Date Code Description Provider 01/01/2019 K63.1 Perforation of intestine (nontraumatic) Luís Torrez MD 11/21/2018 K63.1 Perforation of intestine (nontraumatic) Luís Torrez MD 10/23/2018 K63.1 Perforation of intestine (nontraumatic) Luís Torrez MD 10/16/2018 K63.1 Perforation of intestine (nontraumatic) Luís Torrez MD 10/09/2018 K63.1 Perforation of intestine (nontraumatic) KT Spears 10/09/2018 K63.1 Perforation of intestine (nontraumatic) Yann Palacios , KT 10/07/2018 K63.1 Perforation of intestine (nontraumatic) Hallie Nevarez, BRANNON 10/06/2018 K63.1 Perforation of intestine (nontraumatic) Riaz Robles MD, FACS 10/05/2018 K91.72 Acc pnctr & lac of a [facility] org Luís Torrez MD during oth procedure 10/05/2018 K91.72 Acc pnctr & lac of a [facility] org Luís Torrez MD during oth procedure 08/28/2018 Z00.00 Encounter for general adult medical Kia Brumfield MD examination without abno 08/28/2018 Z12.11 Encounter for screening for malignant Kia Brumfield MD neoplasm of colon 08/28/2018 K59.00 Constipation, unspecified Kia Brumfield MD 08/28/2018 R35.0 Frequency of micturition Kia Brumfield MD Plan of Treatment Future Appointment(s):02/11/2019 9:00 am - Luís Torrez MD at [facility]02/03/2019 7:30 am - Luís Torrez MD at [facility]01/01/2019 - Luís Torrez MDK63.1 Perforation of intestine (nontraumatic)Comments:status post Devin's procedure, 3 months out ready for colostomy takedown. We discussed robotic repair/takedown with risks including but not limited to bleeding, infection, injury to the bowel or other intra-abdominal contents including the liver or spleen ureter, anastomotic leak in my pneumonia PE arrhythmia, even discussed he would like to proceed with surgery and all questions were answered Functional Status Description No Information Available Mental Status Description No Information Available Referrals Refer to Dr Reason for Referral Status Appt Date Kiko Kerr Sent 08/30/2018 [address] [place] [address] [phone] Wally Nieves MD Received Partial [address] [place] [address] [phone]
[2019-02-03] MEDS ORDERED: Dexamethasone IV* 4 MG/ML 1 ML (4 MG) ONE (06:18)
[2019-02-03] MEDS ORDERED: Famotidine IV* 10 MG/ML 2 ML (20 mg) ONE (06:19)
[2019-02-03] MEDS ORDERED: Scopolamine 1.5 mg* PATCH ONE (06:19)
[2019-02-03] MEDS ORDERED: Buffered Lidocaine 1% SYRIN* 1 ML/SYRINGE INTRADERM ONE (06:19)
[2019-02-03] MEDS ORDERED: ceFOXitin 2 GM IVPREMIX* 2 GM/50 ML BAG ONE (06:21)
[2019-02-03] MEDS ORDERED: Midazolam* 1 MG/ML 5 ML VIAL (5 MG) ONE (07:04)
[2019-02-03] MEDS ORDERED: Propofol* 10 MG/ML 20 ML BTL ONE (07:04)
[2019-02-03] MEDS ORDERED: fentaNYL* 50 MCG/ML 5 ML VIAL (250 MCG VIAL) ONE (07:04)
[2019-02-03] MEDS ORDERED: Lidocaine 2% PF * 5 ML VIAL ONE (07:05)
[2019-02-03] MEDS ORDERED: Rocuronium* 10 MG/ML VIAL ONE ×2 (07:05→09:03)
[2019-02-03] MEDS ORDERED: Bupivacaine 0.5%* 50 ML MDV VIAL ONE (07:28)
[2019-02-03] MEDS ORDERED: PROCHLORPERAZINE INJ 5 MG/ML 2 ML VIAL IV PRN (07:38)
[2019-02-03] MEDS ORDERED: Naloxone* 0.4 MG/ML 1 ML VIAL IV PRN (07:38)
[2019-02-03] MEDS ORDERED: Acetaminophen IV 1GM/100ML * 1,000 MG/100 ML VIAL IVPB ONE (07:38)
[2019-02-03] MEDS ORDERED: Ketorolac INJ* 30 MG/ML 1 ML VIAL IV PRN (07:38)
[2019-02-03] MEDS ORDERED: Surgical Lubricant STERILE* 120 GM TOP.GEL ONE (07:41)
[2019-02-03] MEDS ORDERED: fentaNYL* 50 MCG/ML 2 ML VIAL (100 MCG VIAL) ONE ×3 (10:21→12:57)
[2019-02-03] MEDS ORDERED: Ondansetron INJ* 2 MG/ML VIAL ONE (11:13)
[2019-02-03] MEDS ORDERED: Bacitracin OINTMENT* 0.5% 0.5 oz TUBE ONE (11:31)
[2019-02-03] MEDS ORDERED: Sugammadex * 200 MG/2 ML VIAL IV PUSH ONE (11:32)
[2019-02-03] MEDS ORDERED: Acetaminophen IV 1GM/100ML * 100 ML ONE (11:53)
[2019-02-03] MEDS ORDERED: Ketorolac INJ* 30 MG/ML 1 ML VIAL ONE (11:53)
[2019-02-03] MEDS ORDERED: Docusate CAP* 100 MG PO PRN (11:54)
[2019-02-03] MEDS ORDERED: Acetaminophen TAB* 325 MG PO PRN (11:54)
[2019-02-03] MEDS ORDERED: HYDROmorphone INJ1* 1 MG/ML SYRINGE IV SLOW PU PRN (11:54)
[2019-02-03] MEDS ORDERED: oxyCODONE/Acetamin 5/325 MG* TAB PO PRN (11:54)
[2019-02-03] MEDS ORDERED: Ondansetron INJ* 2 MG/ML VIAL IV PRN (11:54)
[2019-02-03] MEDS ORDERED: Ketorolac INJ* 30 MG/ML 1 ML VIAL IV SCH (12:00)
[2019-02-03] MEDS: fentaNYL* 50 MCG/ML 2 ML VIAL (100 MCG VIAL) IV PRN ×4 (12:38→13:23)
[2019-02-03 14:02] LABS: Urine Appearance Clear; Urine Bilirubin Negative (Negative); Urine Blood Negative (Negative); Urine Color Yellow; Urine Glucose Negative (Negative); Urine Ketones 2+ (Negative); Urine Nitrite Negative (Negative); Urine Protein Negative (Negative); Urine Urobilinogen Negative (Negative)
[2019-02-03] MEDS: Lactated Ringers 1000 ML Bag* 1,000 ML IV SCH ×2 (14:29→21:53)
[2019-02-03] MEDS: Ketorolac INJ* 30 MG/ML 1 ML VIAL IV SCH ×2 (18:22→23:51)
[2019-02-03] MEDS: Heparin VIAL(*) 5000 UNITS/ML VIAL (FIVE THOUSAND) SUBCUT SCH (21:53)
--- NOTE | 2019-02-03 23:11 | OP ---
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 OPERATIVE PROCEDURE: Robotic colostomy take down, mobilization of splenic flexure. INDICATIONS: Here for colostomy take down. Risks of the surgery including but not limited to; bleeding, infection, injury to intraabdominal contents including the bowel, anastomotic leak, NH, pneumonia, PE, arrhythmia, even were explained to the patient who seemed to understand and agreed to the procedure and all questions were answered. DESCRIPTION OF PROCEDURE: The patient was taken to the operating room and placed supine. Preoperative antibiotics were given. After the successful induction of general endotracheal anesthesia, the abdomen was prepped and draped in sterile fashion. A subxiphoid 5 mm trocar was placed under direct visualization of the camera using a bladeless Optiview trocar. Pneumoperitoneum was achieved with 12 mmHg. A camera was placed in the abdomen and the abdomen was scanned. There was no obvious injury from trocar placement. The 8 mm trocars was placed in a line from the subxiphoid port down to the right lower quadrant all spaced one head width apart. The 5 mm trocar was replaced with an 8 mm trocar and four 8 mm trocars, robotic were placed. A cyst port, 5 mm was placed in the right lateral abdomen as well under direct visualization of the camera and connected to the air seal. He was tilted slightly towards his right and the robot was brought in and docked. Adhesions from the prior surgery to the midline were taken down gently along avascular plains and the colon was gently mobilized medially from the ostomy site up to the splenic flexure and then the splenic flexure was mobilized the colon from the ligamentous attachments to the spleen and the omentum. The colostomy site was then dissected free from the surrounding tissue from within all the way up to the level of the skin. The robot was then undocked. An incision was made around the ostomy between the skin and the ostomy and it was completely freed and brought out through the wound and a 25 mm EEA Anvil was placed in the colon and advanced proximally. The colon was divided at a point below the ostomy site from the skin where the bowel was pliable and mesentry was taken using snap, cut, and tie technique. Only approximately 3 to 4 cm of the bowel was taken. The anvil was brought out just above the staple line after the bowel was divided and the bowel was then placed back in the abdomen. The skin was closed with a running 2-0 Prolene. Pneumoperitoneum was applied to the abdomen again. The robot was brought in and docked after the patient was placed in a Trendelenburg position, tilted slightly towards his right. A few adhesions of the small bowel were taken out of the pelvis and the rectum was clearly visible and it was gently mobilized. A sizer was placed into the rectum and brought up to the anastomosis and air was insufflated into the rectum. The EEA stapler was then advanced up into the rectum and a stapled EEA anastomosis was made connecting the originally placed anvil down to the rectum, EEA spike. The anterior surface of the anastomosis was oversewn using a running 3-0 V- Loc suture. Saline was placed in the pelvis and the proximal colon was gently clamped and air was insufflated into the rectum of the rigid sigmoidoscope and there was no air leak noted in the submerged anastomosis. The saline was then aspirated out the pelvis. EBL was minimal for the case. Hemostasis was intact. The omentum was placed down over the anastomosis. The defect from the ostomy site was then closed robotically using a running 0-PDS stratafix suture closing the fascia. The abdomen was scanned, there were no obvious injuries. Pneumoperitoneum was completely released from the abdomen and the trocars were all removed. The skin was opened at the ostomy site again. Fascial closure appeared good. This wound was irrigated copiously warm saline and aspirated dry. The skin was then closed with elle at all sites. Antibiotic ointment was applied with sterile dressings. The patient tolerated the procedure well, he was extubated and taken to recovery in stable condition. [id number]/[facility] #: [id number] [facility]
[2019-02-04] MEDS: Ketorolac INJ* 30 MG/ML 1 ML VIAL IV SCH ×3 (05:46→17:42)
[2019-02-04] MEDS: Lactated Ringers 1000 ML Bag* 1,000 ML IV SCH ×2 (05:46→14:37)
[2019-02-04] MEDS: Heparin VIAL(*) 5000 UNITS/ML VIAL (FIVE THOUSAND) SUBCUT SCH ×2 (05:46→15:03)
[2019-02-04 06:34] LABS: ABS Lymphocytes 1.2 10^3/ul (1.0-4.8); ABS Neutrophils 11.2 10^3/ul (1.5-7.7); Hematocrit 36 % (42-52); Hemoglobin 12.4 g/dL (14.0-18.0); Lymphocyte % 9.1 %; Mean Corpuscular HGB Conc 35 g/dL (31-36); Mean Corpuscular Hemoglobin 30 pg (27-31); Mean Corpuscular Volume 85 fL (80-94); Mean Platelet Volume 8.1 fL (7.4-10.4); Platelet Count 164 10^3/uL (150-450); Red Blood Count 4.18 10^6 /uL (4.18-5.48); Red Cell Distribution Width 13 % (10-15); White Blood Count 13.4 10^3/uL (3.5-10.8)
[2019-02-04 06:53] LABS: BUN/Creatinine Ratio 21.3 (8-20); Calcium 8.6 mg/dL (8.6-10.3); EGFR African American 99.1 (>60); EGFR Non-African American 81.9 (>60)
[2019-02-04] MEDS ORDERED: NS 0.9% 500 ML* 500 ML IV ONE (08:00)
[2019-02-04 19:58] VITALS: BP 126/76
--- NOTE | 2019-02-05 03:06 | DS ---
CC: Kia Brumfield MD * DISCHARGE SUMMARY: DATE OF ADMISSION: 02/03/19 DATE OF DISCHARGE: 02/04/19 ATTENDING PHYSICIAN: Luís Torrez MD * (DICTATED BY KT JUÁREZ) HOSPITAL COURSE: Please refer to admission and history and operative note for details. The patient was taken to the operating room on 02/03/19 at which time he underwent laparoscopic robotic take down of his colostomy with Dr. Torrez. The surgery itself and the postoperative course had been unremarkable. As of the afternoon of discharge, the patient was tolerating full liquid diet, passing flatus and had a small amount of stool. His pain was under good control and he was deemed ready for discharge by Dr. Torrez. (See separate progress note from the same date). A prescription for Percocet 5/325 (#8) was given to the patient to be filled through the outpatient pharmacy at [facility]. The patient has a followup scheduled with Dr. Torrez for next week. Wound care, diet, and activities instructions were reviewed. He is discharged to home in good condition. KT JUÁREZ [id number]/[id number] #: [id number] [place]
[2019-02-06] MEDS ORDERED: Scopolamine PATCH Remove* 1 NOTE MISC PATCH OFF ONE (06:00)
== END 2019-02-04 19:45 | disposition home or self-care (01) | DRG 223 ==
LOC: AA 06:03 → SSU 14:08
PROVIDERS: ADMIT Surgery; ATTEND Surgery
PROC: 8E0W4CZ Robotic Assisted Procedure of Trunk Region, Percutaneous Endoscopic Approach (ICD-10-PCS; 2019-02-03)
PROC: 0DSN4ZZ Reposition Sigmoid Colon, Percutaneous Endoscopic Approach (ICD-10-PCS; principal; 2019-02-03 07:30)
DX: Z43.3 Encounter for attention to colostomy (principal)
CPT/HCPCS: 36415; 80048; 81003; 85025; 88304; A9270-GY; C1776; J0694; J1100; J1644; J1885; J2250; J2405; J2704; J3010; J3490